=== PATIENT | female | born 1950 | race Caucasian/White ===

== ENCOUNTER 2017-07-12 06:49 | Day surgery (SDC) | payer MEDICARE, OTHER ==
[~2017-07-12 06:49] MED LIST: ACETAMINOPHEN 325 MG TABLET PO PRN; ACETYLCHOLINE CHLORIDE 20 DROP KIT IO PRN; BUPIVACAINE HCL/PF 30 ML VIAL IJ PRN; CYCLOPENTOLATE HCL 20 DROP BTL LEFTEYE PRN; DEXTROSE 5%-0.5 NORMAL SALINE 1,000 ML IV PRN; EPINEPHrine 1 MG/ML AMPUL IO PRN; HYALURONATE SODIUM 0.4 ML DISP.SYRIN IO PRN; HYALURONATE SODIUM 0.85 ML DISP.SYRIN IO PRN; LIDOCAINE HCL/PF 200 MG/5 ML AMPUL TP PRN; LIDOCAINE HCL/PF 5 ML VIAL IO PRN; NORMAL SALINE 3 ML BOX IV PRN; TETRACAINE HCL 150 DROP BTL OP PRN
[2017-07-12] MEDS: TROPICAMIDE 150 DROP BTL LEFTEYE PRN ×3 (07:10→07:30)
[2017-07-12] MEDS: PHENYLEPHRINE HCL 50 DROP BTL LEFTEYE PRN ×3 (07:10→07:30)
[2017-07-12] MEDS ORDERED: RINGER'S SOLUTION,LACTATED 1,000 ML IV ONE (07:45)
[2017-07-12 09:35] VITALS: BP 146/72
== END 2017-07-12 06:50 | disposition home or self-care (01) ==
LOC: AMB 06:49
PROVIDERS: ATTEND Ophthalmology
PROC: 08RK3JZ Replacement of Left Lens with Synthetic Substitute, Percutaneous Approach (ICD-10-PCS; principal; 2017-07-12 08:00)
DX: H26.8 Other specified cataract (principal); E11.9 Type 2 diabetes mellitus without complications; I10 Essential (primary) hypertension; M81.0 Age-related osteoporosis without current pathological fracture; Z68.33 Body mass index [BMI] 33.0-33.9, adult